=== PATIENT | male | born 1940 | race Caucasian/White ===

== ENCOUNTER → 2017-05-16 | Outpatient (CLI) | payer MEDICARE, OTHER ==
[~2017-05-16] MED LIST: /AMLO25TA PO; ACET50TA PO; AMLO5TAB2 PO; BACT800T5 PO; CEPH25SS PO; LOPR50TA PO; NORVASC PO; OMEP20CA3 PO; PERCOCET PO; PRIL20CA PO; SIMV20TA2 PO; SIMV40TA2 PO; ZOCO40TA PO
[2017-05-16 12:47] LABS: MEAN CORPUSCULAR HEMOGLOBIN 35.3 pg (27.0-33.0); MEAN CORPUSCULAR HGB CONC 34.3 g/dl (32.0-36.5); MEAN CORPUSCULAR VOLUME 102.8 fl (80.0-96.0); RED CELL DISTRIBUTION WIDTH 15.2 % (11.5-14.5); WHITE BLOOD COUNT 4.7 K/mm3 (4.0-10.0)
[2017-05-16 12:55] LABS: INR 1.25
== END ==
LOC: M WUC 12:05
PROVIDERS: ATTEND Internal Medicine
DX: I48.0 Paroxysmal atrial fibrillation (principal); Z79.01 Long term (current) use of anticoagulants

== ENCOUNTER → 2017-05-23 | Outpatient (CLI) | payer MEDICARE, OTHER ==
[2017-05-23 13:52] LABS: INR 1.73; MEAN CORPUSCULAR HEMOGLOBIN 34.1 pg (27.0-33.0); MEAN CORPUSCULAR HGB CONC 33.3 g/dl (32.0-36.5); MEAN CORPUSCULAR VOLUME 102.3 fl (80.0-96.0); WHITE BLOOD COUNT 4.6 K/mm3 (4.0-10.0)
== END ==
LOC: M WUC 10:34
PROVIDERS: ATTEND Internal Medicine
DX: I48.0 Paroxysmal atrial fibrillation (principal); Z79.01 Long term (current) use of anticoagulants

== ENCOUNTER → 2017-05-30 | Outpatient (CLI) | payer MEDICARE, OTHER ==
[2017-05-30 14:35] LABS: INR 2.59
[2017-05-30 14:38] LABS: MEAN CORPUSCULAR HEMOGLOBIN 35.2 pg (27.0-33.0); MEAN CORPUSCULAR VOLUME 100.5 fl (80.0-96.0); RED CELL DISTRIBUTION WIDTH 14.5 % (11.5-14.5); WHITE BLOOD COUNT 4.3 K/mm3 (4.0-10.0)
== END ==
LOC: M WUC 12:28
PROVIDERS: ATTEND Internal Medicine
DX: I48.0 Paroxysmal atrial fibrillation (principal); Z79.01 Long term (current) use of anticoagulants

== ENCOUNTER → 2017-06-13 | Outpatient (CLI) | payer MEDICARE, OTHER ==
[2017-06-13 13:34] LABS: MEAN CORPUSCULAR HEMOGLOBIN 34.1 pg (27.0-33.0); MEAN CORPUSCULAR HGB CONC 33.5 g/dl (32.0-36.5); MEAN CORPUSCULAR VOLUME 101.7 fl (80.0-96.0); RED CELL DISTRIBUTION WIDTH 14.7 % (11.5-14.5); WHITE BLOOD COUNT 4.1 K/mm3 (4.0-10.0)
[2017-06-13 13:38] LABS: INR 2.62
== END ==
LOC: M WUC 11:39
PROVIDERS: ATTEND Internal Medicine
DX: I48.0 Paroxysmal atrial fibrillation (principal); Z79.01 Long term (current) use of anticoagulants

== ENCOUNTER → 2018-03-23 | Outpatient (CLI) | payer MEDICARE, OTHER ==
[2018-03-23 16:41] LABS: INR 1.76; PROTHROMBIN TIME 21.1 SECONDS (12.4-14.5)
== END ==
LOC: M WUC 13:39
DX: Z51.81 Encounter for therapeutic drug level monitoring (principal); Z79.01 Long term (current) use of anticoagulants; I48.0 Paroxysmal atrial fibrillation
CPT/HCPCS: 85610

== ENCOUNTER → 2018-04-06 | Outpatient (CLI) | payer MEDICARE, OTHER ==
[2018-04-06 13:09] LABS: HEMATOCRIT 42.6 % (42.0-52.0); HEMOGLOBIN 15.1 g/dl (13.5-17.5); MEAN CORPUSCULAR HEMOGLOBIN 33.9 pg (27.0-33.0); MEAN CORPUSCULAR HGB CONC 35.4 g/dl (32.0-36.5); MEAN CORPUSCULAR VOLUME 95.7 fl (80.0-96.0); PLATELET COUNT, AUTOMATED 127 10^3/uL (150-450); RED BLOOD COUNT 4.45 10^6/uL (4.30-6.10); RED CELL DISTRIBUTION WIDTH 12.8 % (11.5-14.5); WHITE BLOOD COUNT 5.6 10^3/uL (4.0-10.0)
[2018-04-06 13:23] LABS: INR 1.87; PROTHROMBIN TIME 21.9 SECONDS (12.1-14.4)
== END ==
LOC: M WUC 11:08
DX: I48.0 Paroxysmal atrial fibrillation (principal); Z79.02 Long term (current) use of antithrombotics/antiplatelets
CPT/HCPCS: 85610

== ENCOUNTER → 2018-04-17 | Outpatient (CLI) | payer MEDICARE, OTHER ==
[2018-04-17 13:09] LABS: HEMATOCRIT 43.1 % (42.0-52.0); HEMOGLOBIN 15.4 g/dl (13.5-17.5); MEAN CORPUSCULAR HEMOGLOBIN 34.3 pg (27.0-33.0); MEAN CORPUSCULAR HGB CONC 35.7 g/dl (32.0-36.5); PLATELET COUNT, AUTOMATED 131 10^3/uL (150-450); RED BLOOD COUNT 4.49 10^6/uL (4.30-6.10); RED CELL DISTRIBUTION WIDTH 12.8 % (11.5-14.5); WHITE BLOOD COUNT 4.9 10^3/uL (4.0-10.0)
[2018-04-17 13:19] LABS: PROTHROMBIN TIME 24.9 SECONDS (12.1-14.4)
== END ==
LOC: M WUC 12:03
DX: I48.0 Paroxysmal atrial fibrillation (principal); Z79.02 Long term (current) use of antithrombotics/antiplatelets
CPT/HCPCS: 85610

== ENCOUNTER → 2018-05-08 | Outpatient (CLI) | payer MEDICARE, OTHER ==
[2018-05-08 17:06] LABS: INR 1.97; PROTHROMBIN TIME 22.8 SECONDS (12.1-14.4)
[2018-05-08 17:09] LABS: BASO % 0.6 % (0.0-1.0); EOS # 0.1 10^3/uL (0.0-0.50); EOS % 1.4 % (0.0-3.0); HEMATOCRIT 44.7 % (42.0-52.0); HEMOGLOBIN 15.8 g/dl (13.5-17.5); IMMATURE GRANULOCYTE % 0.2 % (0-3.0); LYMPH # 1.4 10^3/uL (1.5-4.5); LYMPH % 21.4 % (24.0-44.0); MEAN CORPUSCULAR HEMOGLOBIN 33.7 pg (27.0-33.0); MEAN CORPUSCULAR HGB CONC 35.3 g/dl (32.0-36.5); MEAN CORPUSCULAR VOLUME 95.3 fl (80.0-96.0); MONO # 0.4 10^3/uL (0.0-0.8); MONO % 6.5 % (0.0-5.0); NEUTROPHILS # 4.6 10^3/uL (1.8-7.7); NEUTROPHILS % 69.9 % (36.0-66.0); PLATELET COUNT, AUTOMATED 148 10^3/uL (150-450); RED BLOOD COUNT 4.69 10^6/uL (4.30-6.10); RED CELL DISTRIBUTION WIDTH 12.7 % (11.5-14.5); WHITE BLOOD COUNT 6.6 10^3/uL (4.0-10.0)
== END ==
LOC: M WUC 13:43
DX: Z51.81 Encounter for therapeutic drug level monitoring (principal); Z79.02 Long term (current) use of antithrombotics/antiplatelets; I48.0 Paroxysmal atrial fibrillation
CPT/HCPCS: 85610

== ENCOUNTER → 2018-05-10 | Outpatient (CLI) | payer MEDICARE, OTHER ==
[2018-05-10 17:14] LABS: BASO % 0.6 % (0.0-1.0); EOS # 0.1 10^3/uL (0.0-0.50); EOS % 1.7 % (0.0-3.0); HEMATOCRIT 46.1 % (42.0-52.0); HEMOGLOBIN 16.2 g/dl (13.5-17.5); IMMATURE GRANULOCYTE % 0.1 % (0-3.0); LYMPH # 1.5 10^3/uL (1.5-4.5); LYMPH % 21.5 % (24.0-44.0); MEAN CORPUSCULAR HEMOGLOBIN 33.7 pg (27.0-33.0); MEAN CORPUSCULAR HGB CONC 35.1 g/dl (32.0-36.5); MEAN CORPUSCULAR VOLUME 95.8 fl (80.0-96.0); MONO # 0.5 10^3/uL (0.0-0.8); MONO % 7.8 % (0.0-5.0); NEUTROPHILS # 4.7 10^3/uL (1.8-7.7); NEUTROPHILS % 68.3 % (36.0-66.0); PLATELET COUNT, AUTOMATED 135 10^3/uL (150-450); RED BLOOD COUNT 4.81 10^6/uL (4.30-6.10); RED CELL DISTRIBUTION WIDTH 12.6 % (11.5-14.5); WHITE BLOOD COUNT 6.9 10^3/uL (4.0-10.0)
[2018-05-10 17:24] LABS: ALBUMIN 3.7 GM/DL (3.2-5.2); ALBUMIN/GLOBULIN RATIO 1.06 (1.00-1.93); ALKALINE PHOSPHATASE 72 U/L (45-117); ALT/SGPT 41 U/L (12-78); ANION GAP 9 MEQ/L (8-16); AST/SGOT 42 U/L (7-37); BILIRUBIN,TOTAL 1.4 MG/DL (0.2-1.0); BLOOD UREA NITROGEN 17 MG/DL (7-18); CALCIUM LEVEL 9.1 MG/DL (8.8-10.2); CARBON DIOXIDE LEVEL 34 MEQ/L (21-32); CHLORIDE LEVEL 92 MEQ/L (98-107); CREATININE FOR GFR 1.26 MG/DL (0.70-1.30); GLOMERULAR FILTRATION RATE 59.2 (>42); POTASSIUM SERUM 3.8 MEQ/L (3.5-5.1); SODIUM LEVEL 135 MEQ/L (136-145); TOTAL PROTEIN 7.2 GM/DL (6.4-8.2)
[2018-05-10 17:35] LABS: ESTIMATED AVERAGE GLUCOSE 240 MG/DL (60-110)
[2018-05-10 17:45] LABS: GLUCOSE, FASTING 422 MG/DL (70-100)
== END ==
LOC: M WUC 11:40
DX: E11.65 Type 2 diabetes mellitus with hyperglycemia (principal)
CPT/HCPCS: 80053

== ENCOUNTER → 2018-05-29 | Outpatient (CLI) | payer MEDICARE, OTHER ==
[2018-05-29 16:33] LABS: HEMATOCRIT 41.8 % (42.0-52.0); HEMOGLOBIN 14.5 g/dl (13.5-17.5); MEAN CORPUSCULAR HEMOGLOBIN 34.1 pg (27.0-33.0); MEAN CORPUSCULAR HGB CONC 34.7 g/dl (32.0-36.5); MEAN CORPUSCULAR VOLUME 98.4 fl (80.0-96.0); PLATELET COUNT, AUTOMATED 139 10^3/uL (150-450); RED BLOOD COUNT 4.25 10^6/uL (4.30-6.10); RED CELL DISTRIBUTION WIDTH 12.8 % (11.5-14.5); WHITE BLOOD COUNT 4.5 10^3/uL (4.0-10.0)
[2018-05-29 16:42] LABS: INR 2.09; PROTHROMBIN TIME 23.9 SECONDS (12.1-14.4)
== END ==
LOC: M WUC 11:12
DX: I48.0 Paroxysmal atrial fibrillation (principal); Z51.81 Encounter for therapeutic drug level monitoring; Z79.02 Long term (current) use of antithrombotics/antiplatelets

== ENCOUNTER → 2018-05-29 | Outpatient (CLI) | payer MEDICARE, OTHER ==
[2018-05-29 16:34] LABS: BASO % 0.8 % (0.0-1.0); EOS # 0.1 10^3/uL (0.0-0.50); EOS % 2.1 % (0.0-3.0); HEMATOCRIT 43.4 % (42.0-52.0); HEMOGLOBIN 14.9 g/dl (13.5-17.5); IMMATURE GRANULOCYTE % 0.4 % (0-3.0); LYMPH # 1.3 10^3/uL (1.5-4.5); LYMPH % 27.1 % (24.0-44.0); MEAN CORPUSCULAR HEMOGLOBIN 33.6 pg (27.0-33.0); MEAN CORPUSCULAR HGB CONC 34.3 g/dl (32.0-36.5); MONO # 0.4 10^3/uL (0.0-0.8); MONO % 8.4 % (0.0-5.0); NEUTROPHILS % 61.2 % (36.0-66.0); PLATELET COUNT, AUTOMATED 141 10^3/uL (150-450); RED BLOOD COUNT 4.43 10^6/uL (4.30-6.10); RED CELL DISTRIBUTION WIDTH 12.8 % (11.5-14.5); WHITE BLOOD COUNT 4.9 10^3/uL (4.0-10.0)
[2018-05-29 16:43] LABS: ALBUMIN 3.5 GM/DL (3.2-5.2); ALKALINE PHOSPHATASE 57 U/L (45-117); ALT/SGPT 36 U/L (12-78); ANION GAP 10 MEQ/L (8-16); AST/SGOT 33 U/L (7-37); BILIRUBIN,TOTAL 1.2 MG/DL (0.2-1.0); BLOOD UREA NITROGEN 12 MG/DL (7-18); CALCIUM LEVEL 8.7 MG/DL (8.8-10.2); CARBON DIOXIDE LEVEL 32 MEQ/L (21-32); CHLORIDE LEVEL 98 MEQ/L (98-107); CREATININE FOR GFR 1.05 MG/DL (0.70-1.30); GLOMERULAR FILTRATION RATE > 60.0 (>42); GLUCOSE, FASTING 151 MG/DL (70-100); POTASSIUM SERUM 3.6 MEQ/L (3.5-5.1); SODIUM LEVEL 140 MEQ/L (136-145)
[2018-05-29 16:51] LABS: ESTIMATED AVERAGE GLUCOSE 255 MG/DL (60-110); HEMOGLOBIN A1c 10.5 %
== END ==
LOC: M WUC 11:58
DX: E11.65 Type 2 diabetes mellitus with hyperglycemia (principal); I48.0 Paroxysmal atrial fibrillation; Z51.81 Encounter for therapeutic drug level monitoring; Z79.02 Long term (current) use of antithrombotics/antiplatelets
CPT/HCPCS: 80053

== ENCOUNTER → 2019-03-29 | Outpatient (CLI) | payer MEDICARE, OTHER ==
[~2019-03-29] MED LIST changes: -/AMLO25TA PO; -ACET50TA PO; +MAPA500T17 PO; +NORV2TAB PO; +OXYC1TAB23 PO; -PERCOCET PO
[2019-03-29 13:46] LABS: HEMATOCRIT 43.7 % (42.0-52.0); HEMOGLOBIN 15.1 g/dl (13.5-17.5); MEAN CORPUSCULAR HEMOGLOBIN 34.8 pg (27.0-33.0); MEAN CORPUSCULAR HGB CONC 34.6 g/dl (32.0-36.5); MEAN CORPUSCULAR VOLUME 100.7 fl (80.0-96.0); PLATELET COUNT, AUTOMATED 125 10^3/uL (150-450); RED BLOOD COUNT 4.34 10^6/uL (4.30-6.10); WHITE BLOOD COUNT 4.2 10^3/uL (4.0-10.0)
[2019-03-29 13:56] LABS: INR 1.9; PROTHROMBIN TIME 21.5 SECONDS (11.8-14.0)
== END ==
LOC: M WUC 09:55
PROVIDERS: ATTEND Internal Medicine
DX: I48.1 Persistent atrial fibrillation (principal)

== ENCOUNTER → 2019-04-12 | Outpatient (CLI) | payer MEDICARE, OTHER ==
[2019-04-12 12:24] LABS: HEMATOCRIT 41.4 % (42.0-52.0); HEMOGLOBIN 14.2 g/dl (13.5-17.5); MEAN CORPUSCULAR HEMOGLOBIN 33.6 pg (27.0-33.0); MEAN CORPUSCULAR HGB CONC 34.3 g/dl (32.0-36.5); MEAN CORPUSCULAR VOLUME 97.9 fl (80.0-96.0); PLATELET COUNT, AUTOMATED 133 10^3/uL (150-450); RED BLOOD COUNT 4.23 10^6/uL (4.30-6.10); WHITE BLOOD COUNT 4.7 10^3/uL (4.0-10.0)
[2019-04-12 12:27] LABS: INR 2.56; PROTHROMBIN TIME 27.4 SECONDS (11.8-14.0)
== END ==
LOC: M WUC 10:28
PROVIDERS: ATTEND Internal Medicine
DX: I48.1 Persistent atrial fibrillation (principal); Z79.01 Long term (current) use of anticoagulants

== ENCOUNTER → 2019-05-03 | Outpatient (CLI) | payer MEDICARE, OTHER ==
[2019-05-03 15:10] LABS: HEMATOCRIT 42.7 % (42.0-52.0); HEMOGLOBIN 14.3 g/dl (13.5-17.5); MEAN CORPUSCULAR HEMOGLOBIN 34.1 pg (27.0-33.0); MEAN CORPUSCULAR HGB CONC 33.5 g/dl (32.0-36.5); MEAN CORPUSCULAR VOLUME 101.9 fl (80.0-96.0); PLATELET COUNT, AUTOMATED 131 10^3/uL (150-450); RED BLOOD COUNT 4.19 10^6/uL (4.30-6.10); WHITE BLOOD COUNT 3.9 10^3/uL (4.0-10.0)
[2019-05-03 15:29] LABS: INR 2.06
== END ==
LOC: M WUC 11:39
PROVIDERS: ATTEND Internal Medicine
DX: I48.1 Persistent atrial fibrillation (principal)

== ENCOUNTER → 2019-05-30 | Outpatient (CLI) | payer MEDICARE, OTHER ==
[2019-05-30 16:54] LABS: INR 2.15; PROTHROMBIN TIME 23.8 SECONDS (11.8-14.0)
== END ==
LOC: M WUC 12:44
PROVIDERS: ATTEND Internal Medicine
DX: I48.1 Persistent atrial fibrillation (principal); Z79.01 Long term (current) use of anticoagulants

== ENCOUNTER → 2019-06-27 | Outpatient (CLI) | payer MEDICARE, OTHER ==
[2019-06-27 17:40] LABS: INR 1.73
== END ==
LOC: M WUC 14:12
PROVIDERS: ATTEND Internal Medicine
DX: I48.1 Persistent atrial fibrillation (principal); Z79.01 Long term (current) use of anticoagulants

== ENCOUNTER → 2020-05-21 | Outpatient (CLI) | payer MEDICARE, OTHER ==
[2020-05-21 20:06] LABS: INR 2.1
== END ==
LOC: M WUC 13:28
PROVIDERS: ATTEND Internal Medicine Cardiovascular Disease
DX: I48.91 Unspecified atrial fibrillation (principal)

== ENCOUNTER → 2020-06-10 | Outpatient (CLI) | payer MEDICARE, OTHER ==
[2020-06-10 17:37] LABS: INR 2.4; PROTHROMBIN TIME 26.7 SECONDS (11.8-14.0)
== END ==
LOC: M WUC 14:35
PROVIDERS: ATTEND Internal Medicine Cardiovascular Disease
DX: I48.91 Unspecified atrial fibrillation (principal)

== ENCOUNTER → 2021-05-26 | Outpatient (REF) | payer MEDICARE, OTHER ==
[2021-05-26 17:15] LABS: INR 2.21; PROTHROMBIN TIME 24.9 SECONDS (12.7-14.5)
== END ==
LOC: M LABDRWAD 15:43 → M WUC 15:43
DX: I48.91 Unspecified atrial fibrillation (principal)

== ENCOUNTER → 2021-06-10 | Outpatient (CLI) | payer MEDICARE, OTHER ==
[2021-06-10 16:19] LABS: INR 1.79; PROTHROMBIN TIME 21.2 SECONDS (12.7-14.5)
== END ==
LOC: M WUC 10:41
PROVIDERS: ATTEND Internal Medicine Cardiovascular Disease
DX: I48.91 Unspecified atrial fibrillation (principal)

== ENCOUNTER → 2021-06-25 | Outpatient (REF) | payer MEDICARE, OTHER ==
[2021-06-25 16:56] LABS: INR 2.07; PROTHROMBIN TIME 23.7 SECONDS (12.7-14.5)
== END ==
LOC: M WUC 15:55
PROVIDERS: ATTEND Internal Medicine Cardiovascular Disease
DX: I48.91 Unspecified atrial fibrillation (principal)

== ENCOUNTER → 2022-04-09 | Outpatient (REF) | payer OTHER ==
[2022-04-09 12:49] LABS: INR 3.36; PROTHROMBIN TIME 34.3 SECONDS (12.7-14.5)
== END ==
LOC: M LABWUC 12:13
DX: I48.0 Paroxysmal atrial fibrillation (principal)

== ENCOUNTER → 2022-04-13 | Outpatient (CLI) | payer OTHER ==
[2022-04-13 15:47] LABS: HEMATOCRIT 31.4 % (42.0-52.0); MEAN CORPUSCULAR HEMOGLOBIN 30.7 pg (27.0-33.0); MEAN CORPUSCULAR HGB CONC 31.8 g/dl (32.0-36.5); MEAN CORPUSCULAR VOLUME 96.3 fl (80.0-96.0); PLATELET COUNT, AUTOMATED 180 10^3/uL (150-450); RED BLOOD COUNT 3.26 10^6/uL (4.30-6.10); WHITE BLOOD COUNT 4.2 10^3/uL (4.0-10.0)
[2022-04-13 18:45] LABS: ALBUMIN 3.8 GM/DL (3.2-5.2); BILIRUBIN,TOTAL 1.2 MG/DL (0.2-1.0); CALCIUM LEVEL 8.9 MG/DL (8.8-10.2); CREATININE FOR GFR 1.4 MG/DL (0.70-1.30); GLOMERULAR FILTRATION RATE 51.9 (>35); POTASSIUM SERUM 3.8 MEQ/L (3.5-5.1); TOTAL PROTEIN 6.9 GM/DL (6.4-8.2)
== END ==
LOC: M WUC 14:39
PROVIDERS: ATTEND Student in an Organized Health Care Education/Training Program
DX: I50.9 Heart failure, unspecified (principal)

== ENCOUNTER → 2022-04-19 | Outpatient (CLI) | payer OTHER ==
[2022-04-19 16:22] LABS: INR 1.72; PROTHROMBIN TIME 20.6 SECONDS (12.7-14.5)
== END ==
LOC: M WUC 13:31
DX: I48.0 Paroxysmal atrial fibrillation (principal)

== ENCOUNTER → 2022-04-26 | Outpatient (CLI) | payer OTHER ==
[2022-04-26 16:20] LABS: INR 1.62; PROTHROMBIN TIME 19.6 SECONDS (12.7-14.5)
== END ==
LOC: M WUC 13:47
DX: I48.0 Paroxysmal atrial fibrillation (principal)

== ENCOUNTER → 2022-05-03 | Outpatient (CLI) | payer OTHER ==
[2022-05-03 16:13] LABS: INR 2.76; PROTHROMBIN TIME 29.5 SECONDS (12.7-14.5)
== END ==
LOC: M WUC 11:09
DX: I48.0 Paroxysmal atrial fibrillation (principal)

== ENCOUNTER → 2022-05-10 | Outpatient (REF) | payer OTHER ==
[2022-05-10 17:46] LABS: INR 1.85; PROTHROMBIN TIME 21.8 SECONDS (12.7-14.5)
== END ==
LOC: M LABWUC 16:26
DX: I48.0 Paroxysmal atrial fibrillation (principal)

== ENCOUNTER → 2022-05-27 | Outpatient (REF) | payer OTHER ==
[2022-05-27 17:17] LABS: INR 2.44; PROTHROMBIN TIME 26.9 SECONDS (12.7-14.5)
== END ==
LOC: M WUC 16:17
DX: I48.0 Paroxysmal atrial fibrillation (principal)